=== PATIENT | male | born 1985 | race American Indian/Alaskan Native ===

== ENCOUNTER 2021-12-25 19:45 | Emergency (ER) | payer BC, OTHER ==
--- NOTE | 2021-12-25 20:35 | XRay Report ---
Right hand 3 views INDICATION: Laceration FINDINGS: Diffuse soft tissue densities with calcaneal irregularities in the distal aspect of the ind ex finger and long finger and ring finger suggesting possible foreign bodies in the soft tissues with diffuse soft tissue injury. No displaced fractures seen. Signer Name: Reese Amaro MD Signed: 12/25/2021 8:31 PM Workstation Name: [id number]
[2021-12-25] MEDS ORDERED: HYDROcodone/ACETAMINOPHEN 5-325 MG TAB PO ONE (21:18)
[2021-12-25] MEDS ORDERED: LIDOCAINE (1%) 10 MG/1 ML VIAL 20 ML MDV INFILTRATI ONE (21:18)
[2021-12-25] MEDS ORDERED: TETANUS,DIPH,PERTUSS(ACELL) VACCINE 0.5 ML SYRINGE IM ONE (21:18)
[2021-12-25] MEDS ORDERED: IBUPROFEN 600 MG TAB PO ONE (21:18)
[2021-12-26] MEDS ORDERED: SODIUM CHLORIDE IRRI 500 ML 500 ML IR ONE (00:38)
[2021-12-26] MEDS ORDERED: ceFAZolin 1 GM VIAL IM ONE (01:05)
[2021-12-26] MEDS ORDERED: ONDANSETRON 4 MG ODT TAB PO ONE (01:53)
[2021-12-26] MEDS ORDERED: oxyCODONE /ACETAMINOPHEN 5-325MG TAB PO ONE (01:53)
[2021-12-26] MEDS ORDERED: NEOMY 3.5 MG/BACIT 400 UNITS/POLY B 5000 UNITS/GM OINT PACKET TP ONE (01:53)
--- NOTE | 2021-12-26 01:57 | Emergency Department Report ---
ED Upper Extremity Inj HPI - General Chief Complaint: Medical Clearance Stated Complaint: RIGHT HAND INJURY Source: patient Mode of arrival: Ambulatory Limitations: No Limitations - History of Present Illness Initial Comments: Patient is a 36-year-old -[place] male with no past medical history presents to the ED with complaint of acute onset right hand and index and middle finger pains with extensive bleeding laceration wounds on right index and middle fingers after a heavy metallic jil of a truck he was walking on slipped and landed on his right hand causing extensive lacerations. Patient states that the pain is constant and persistent and that the bleeding is not well controlled. Patient states that he is not up-to-date with his tetanus vaccinations. Patient denies numbness and tingling or weakness of right hand, dizziness, syncope, loss of consciousness, nausea and vomiting, fall, chest pain or shortness of breath, back pain, change in vision or headache and neck pain. MD Complaint: Injury to:: right, hand (PAIN), finger (Bleeding laceration on right index and midle fingers) -: Sudden, hour(s) (2) Other Extremity Injury: Fingers: Right (Distal right middle and index finger laceration wounds), Hand: Right (Right hand pain) Other Injuries: none Place: work Severity scale (0 -10): 8 Improves With: none Worsens With: movement of extremity Context: direct blow (Right hand hit by a heavy metallic jil), laceration Associated Symptoms: denies other symptoms, suspects foreign body. denies: weakness, numbness, neck pain, nausea/vomiting, other - Related Data Previous Rx's Medication Instructions Recorded Last Taken Type Albuterol Sulfate [Proventil HFA] 1 - 2 puff IH Q4H PRN #1 hfa.aer.ad 10/18/13 Unknown Rx Amoxicillin/K Clav Tab [Augmentin 1 each PO Q12HR #14 tablet 10/18/13 Unknown Rx 500 mg] Acetaminophen/Codeine [Tylenol 1 tab PO Q6H PRN #15 tab 12/26/21 Unknown Rx /Codeine # 3 tab] Ibuprofen [Motrin] 800 mg PO Q8HR PRN #40 tablet 12/26/21 Unknown Rx cephALEXin [Keflex] 500 mg PO Q6HR #40 capsule 12/26/21 Unknown Rx Allergies Allergy/AdvReac Type Severity Reaction Status Date / Time No Known Allergies Allergy Unverified 10/16/13 14:09 ED Review of Systems ROS: Stated complaint: RIGHT HAND INJURY Other details as noted in HPI Constitutional: denies: chills, fever Eyes: denies: eye pain, eye discharge, vision change ENT: denies: ear pain, throat pain Respiratory: denies: cough, shortness of breath, wheezing Cardiovascular: denies: chest pain, palpitations Endocrine: no symptoms reported Gastrointestinal: denies: abdominal pain, nausea, diarrhea Genitourinary: denies: urgency, dysuria Musculoskeletal: arthralgia (Right hand pain and painful right middle and index fingers due to extensive laceration wounds). denies: back pain, joint swelling Skin: other (Bleeding extensive laceration wounds on right middle and index fingers). denies: rash, lesions Neurological: denies: headache, weakness, paresthesias Psychiatric: denies: anxiety, depression Hematological/Lymphatic: denies: easy bleeding, easy bruising ED Past Medical Hx - Past Medical History Previous Medical History?: No Hx Congestive Heart Failure: No Hx Diabetes: No Hx Asthma: No Hx COPD: No - Surgical History Past Surgical History?: Yes Additional Surgical History: surgery to have lymph node removed from neck due to mass - Social History Smoking Status: Never Smoker - Medications Home Medications: Home Medications Medication Instructions Recorded Confirmed Last Taken Type Albuterol Sulfate [Proventil HFA] 1 - 2 puff IH Q4H PRN #1 hfa.aer.ad 10/18/13 Unknown Rx Amoxicillin/K Clav Tab [Augmentin 1 each PO Q12HR #14 tablet 10/18/13 Unknown Rx 500 mg] Acetaminophen/Codeine [Tylenol 1 tab PO Q6H PRN #15 tab 12/26/21 Unknown Rx /Codeine # 3 tab] Ibuprofen [Motrin] 800 mg PO Q8HR PRN #40 tablet 12/26/21 Unknown Rx cephALEXin [Keflex] 500 mg PO Q6HR #40 capsule 12/26/21 Unknown Rx ED Physical Exam - General Limitations: No Limitations General appearance: alert, in no apparent distress - Head Head exam: Present: atraumatic, normocephalic, normal inspection - Eye Eye exam: Present: normal appearance, PERRL, EOMI Pupils: Present: normal accommodation - ENT ENT exam: Present: normal exam, normal orophraynx, mucous membranes moist, TM's normal bilaterally, normal external ear exam - Neck Neck exam: Present: normal inspection, full ROM. Absent: tenderness - Respiratory Respiratory exam: Present: normal lung sounds bilaterally. Absent: respiratory distress, wheezes, rhonchi, chest wall tenderness, accessory muscle use, decreased breath sounds - Cardiovascular Cardiovascular Exam: Present: regular rate, normal rhythm, normal heart sounds. Absent: systolic murmur, diastolic murmur, rubs, gallop - GI/Abdominal GI/Abdominal exam: Present: soft, normal bowel sounds. Absent: tenderness, guarding, rebound, hyperactive bowel sounds, hypoactive bowel sounds, organomegaly, mass - Extremities Exam Extremities exam: Present: normal inspection, full ROM, tenderness (Palpable right hand tenderness; palpable right index and middle finger tenderness due to a 6 cm and 8 cm laceration wounds respectively), normal capillary refill. Absent: pedal edema, joint swelling, calf tenderness - Back Exam Back exam: Present: normal inspection, full ROM. Absent: tenderness, CVA tenderness (R), CVA tenderness (L), muscle spasm, paraspinal tenderness, vertebral tenderness - Neurological Exam Neurological exam: Present: alert, oriented X3, CN II-XII intact, normal gait, reflexes normal - Psychiatric Psychiatric exam: Present: normal affect, normal mood - Skin Skin exam: Present: warm, dry, intact, normal color, other (Bleeding 6 cm laceration and 8 cm laceration wounds on distal right index and middle fingers respectively). Absent: rash ED Course Vital Signs 12/25/21 19:51 Temperature 99.1 F Pulse Rate 89 Respiratory 14 Rate Blood Pressure 152/74 O2 Sat by Pulse 100 Oximetry - Laceration /Wound Repair Right Palm Finger Wound Location: upper extremity (Right index finger laceration on palmar side) Wound Length (cm): 6 Wound's Depth, Shape: irregular, flap Wound Explored: foreign body removed Irrigated w/ Saline (ccs): 400 Betadine Prep?: Yes Anesthesia: 1% Lidocaine Volume Anesthetic (ccs): 8 Wound Debrided: extensive Wound Repaired With: sutures Suture Size/Type: 3:0, proline Number of Sutures: 22 Layer Closure?: No Sterile Dressing Applied?: Yes Progress: The area was extensively cleaned and debrided with normal saline solutions and detergent solution. The wound was also debrided with Betadine solution and as much foreign bodies were removed as possible. The lidocaine 1% solution was u sed as a digital block for local anesthesia and when anesthesia was fully achieved, the finger was sutured per protocol using Prolene 3-0 sutures for a total of 22 sutures. Patient tolerated procedure well. Neosporin ointment was applied over the sutured wound and dressed appropriately with 4 x 4 gauze and Kerlix gauze. Right Distal Finger Wound Location: upper extremity (Distal right middle finger laceration on palmar side) Wound Length (cm): 8 Wound's Depth, Shape: irregular, flap, contused tissue Wound Explored: foreign body removed Irrigated w/ Saline (ccs): 400 Betadine Prep?: Yes Anesthesia: 1% Lidocaine Volume Anesthetic (ccs): 10 Wound Debrided: extensive Wound Repaired With: sutures Suture Size/Type: 3:0, proline Number of Sutures: 30 Layer Closure?: No Sterile Dressing Applied?: Yes Progress: The area was extensively cleaned and debrided with normal saline solutions and detergent solution. The wound was also debrided with Betadine solution and as much foreign bodies were removed as possible. The lidocaine 1% solution was used as a digital block for local anesthesia and when anesthesia was fully achieved, the finger was sutured per protocol using Prolene 3-0 sutures for a total of 30 sutures. Patient tolerated procedure well. Neosporin ointment was applied over the sutured wound and dressed appropriately with 4 x 4 gauze and Kerlix gauze. ED Medical Decision Making - Medical Decision Making This is a 36-year-old -[place] male with no past medical history presents to the ED with complaint of acute onset right hand and index and middle finger pains with extensive bleeding laceration wounds on right index and middle fingers after a heavy metallic jil of a truck he was walking on slipped and landed on his right hand causing extensive lacerations. Patient states that the pain is constant and persistent and that the bleeding is not well controlled. Patient states that he is not up-to-date with his tetanus vacc inations. In the ED, patient is alert and oriented x3 and is not in any distress. Patient was treated for pain in the ED and also received booster tetanus vaccinations. Right hand x-ray showed no acute fractures or subluxations. Patient right index and middle finger laceration wounds were extensively cleaned and debrided to remove as much foreign bodies as practically possible. The wounds were then sanitized with Betadine solutions and sutured per protocol using Prolene 3-0 sutures. Patient tolerated the procedure well. Neosporin ointment was applied to the the sutured wounds and the fingers dressed appropriately with 4 x 4 gauze and Kerlix. Patient also received Ancef 1 g intramuscular injection in the ED. Patient was thereafter discharged home on pain medications and antibiotic and advised to follow-up with his primary care physician in 5 to 7 days for reevaluation. Patient advised return to the ED immediately if symptoms get worse. Patient was otherwise advised to return to the ED or to his primary care physician in 12 to 14 days for suture removal. - Differential Diagnosis Hand contusion; finger lacerations; finger puncture wound; finger injuries Critical care attestation.: If time is entered above; I have spent that time in minutes in the direct care of this critically ill patient, excluding procedure time. ED Disposition Clinical Impression: Contusion of right hand including fingers Qualifiers: Encounter type: initial encounter Qualified Code(s): S60.221A - Contusion of right hand, initial encounter; S60.00XA - Contusion of unspecified finger without damage to nail, initial encounter Laceration of right index finger w/o foreign body w/o damage to nail Qualifiers: Encounter type: initial encounter Qualified Code(s): S61.210A - Laceration without foreign body of right index finger without damage to nail, initial encounter Laceration of right middle finger with foreign body w/o damage to nail Qualifiers: Encounter type: initial encounter Qualified Code(s): S61.222A - Laceration with foreign body of right middle finger without damage to nail, initial encounter Disposition: 01 HOME / SELF CARE / HOMELESS Is pt being admited?: No Does the pt Need Aspirin: No Condition: Stable Instructions: Laceration Care, Adult, [id number], Sutures, [place], or Adhesive Wound Closure, [id number], Sutured Wound Care, [id number], Hand Contusion, [id number] Additional Instructions: The right hand x-ray showed no acute fractures or subluxations. Therefore take medications with food, drink plenty of fluids, follow-up with your primary care physician in 7 to 10 days for reevaluation. Return to the ED immediately if your symptoms get worse. Otherwise return to the ED or your primary care physician in 12 to 10 days for suture removal. Prescriptions: cephALEXin [Keflex] 500 mg PO Q6HR #40 capsule Ibuprofen [Motrin] 800 mg PO Q8HR PRN #40 tablet PRN Reason: Pain , Severe (7-10) Acetaminophen/Codeine [Tylenol /Codeine # 3 tab] 1 tab PO Q6H PRN #15 tab PRN Reason: Pain , Severe (7-10) Referrals: [facility] [Provider Group] - 7-10 days Time of Disposition: 02:07 Print Language: BENINESE
[2021-12-26 02:31] VITALS: BP 136/66
== END 2021-12-26 02:25 | disposition home or self-care (01) ==
LOC: ED 19:45
DX: S61.220A Laceration with foreign body of right index finger without damage to nail, initial encounter (principal); S61.222A Laceration with foreign body of right middle finger without damage to nail, initial encounter; W22.8XXA Striking against or struck by other objects, initial encounter; Y93.89 Activity, other specified; Y92.89 Other specified places as the place of occurrence of the external cause; Y99.8 Other external cause status; Z98.890 Other specified postprocedural states; Z79.899 Other long term (current) drug therapy
CPT/HCPCS: 12045; 73130; 90471; 90715; 96372; 99283; J0690; J3490; Q0162

== ENCOUNTER 2022-01-08 08:20 | Emergency (ER) | payer BC ==
[2022-01-08 08:36] VITALS: BP 137/78
[2022-01-08] MEDS ORDERED: oxyCODONE /ACETAMINOPHEN 5-325MG TAB PO ONE (10:00)
--- NOTE | 2022-01-08 11:03 | Emergency Department Report ---
Suture/Staple Removal - [facility] Chief Complaint: Laceration/Recheck/Suture Stated Complaint: REMOVAL OF STITCHES When Sutures or [place] Placed: 11-14 Days Ago Wound Location: Right index and middle finger ED Review of Systems ROS: Stated complaint: REMOVAL OF STITCHES Other details as noted in HPI Constitutional: denies: chills, fever Eyes: denies: eye pain, eye discharge, vision change ENT: denies: ear pain, throat pain Respiratory: denies: cough, shortness of breath, wheezing Cardiovascular: denies: chest pain, palpitations Endocrine: no symptoms reported Gastrointestinal: denies: abdominal pain, nausea, diarrhea Genitourinary: denies: urgency, dysuria Musculoskeletal: denies: back pain, joint swelling, arthralgia Skin: change in color, other (Purulent drainage). denies: rash, lesions Neurological: denies: headache, weakness, paresthesias Psychiatric: denies: anxiety, depression Hematological/Lymphatic: denies: easy bleeding, easy bruising ED Past Medical Hx - Past Medical History Hx Congestive Heart Failure: No Hx Diabetes: No Hx Asthma: No Hx COPD: No - Surgical History Additional Surgical History: surgery to have lymph node removed from neck due to mass - Social History Smoking Status: Never Smoker - Medications Home Medications: Home Medications Medication Instructions Recorded Confirmed Last Taken Type Albuterol Sulfate [Proventil HFA] 1 - 2 puff IH Q4H PRN #1 hfa.aer.ad 10/18/13 Unknown Rx Amoxicillin/K Clav Tab [Augmentin 1 each PO Q12HR #14 tablet 10/18/13 Unknown Rx 500 mg] Acetaminophen/Codeine [Tylenol 1 tab PO Q6H PRN #15 tab 12/26/21 Unknown Rx /Codeine # 3 tab] Ibuprofen [Motrin] 800 mg PO Q8HR PRN #40 tablet 12/26/21 Unknown Rx cephALEXin [Keflex] 500 mg PO Q6HR #40 capsule 12/26/21 Unknown Rx Suture Removal Exam - Exam General: Vital signs noted. No distress. Alert and acting appropriately. Wound: Yes Tenderness (Middle finger), Yes Drainage (Middle finger), Yes Pus (Middle finger), No Pathologic Erythema, No Wound Dehiscence Other Systems: All other systems reviewed and are unremarkable. ED Course Vital Signs 01/08/22 08:35 Temperature 98.1 F Pulse Rate 75 Respiratory 16 Rate Blood Pressure 137/78 [Right] O2 Sat by Pulse 100 Oximetry ED Recheck MDM - Medical Decision Making 36-year-old male presents to the ED for suture removal of the right middle and index finger. Patient had a suture placed 2 weeks ago. Sutures moved from the right finger wound noted with drainage noted. Sutures left in place to the index finger. During removal of suture patient call resurgent hand and plastic surgeon whom patient had an open appointment if they can come to the office immediately. Suture was left in place to the right middle finger. Patient left without discharge instruction, 1400. Follow-up by phone call to patient. Informed by patient that the hand was infected and was started on antibiotic. Patient states that the sutures to the middle index finger was left in place for another week. Critical care attestation.: If time is entered above; I have spent that time in minutes in the direct care of this critically ill patient, excluding procedure time. ED Disposition Condition: Stable
== END 2022-01-08 11:00 ==
LOC: ED 08:20
DX: S61.210D Laceration without foreign body of right index finger without damage to nail, subsequent encounter (principal); X58.XXXD Exposure to other specified factors, subsequent encounter
CPT/HCPCS: 99281